=== PATIENT | female | born 1995 | race Two or more races ===

== ENCOUNTER 2020-09-28 16:40 | Emergency (ER) | payer OTHER ==
[~2020-09-28] VITALS: Ht 165.1 cm; Wt 56.7 kg
[2020-09-28 16:45] VITALS: BP 122/72
== END 2020-09-28 17:47 | disposition home or self-care (01) ==
LOC: ER 16:40
DX: J02.9 Acute pharyngitis, unspecified (principal); Z20.822 Contact with and (suspected) exposure to COVID-19
CPT/HCPCS: 87426; 99283; C9803